=== PATIENT | male | born 1995 | race Caucasian/White ===

== ENCOUNTER 2018-03-20 09:43 | Emergency (ER) | payer SELFPAY ==
[~2018-03-20] VITALS: Ht 177.8 cm; Wt 113.6 kg
[~2018-03-20 09:43] MED LIST: NO HOME MEDICATIONS; PRILOSEC 20MG20 MG PO; ZITHROMAX Z PA250 MG PO
[2018-03-20 10:02] VITALS: PULSE 86; TEMP 98
[2018-03-20 10:19] VITALS: BP 144/98
[2018-03-20] MEDS ORDERED: AMOXICILLIN 50500 MG PO (10:19)
[2018-03-20] MEDS ORDERED: NORCO 325 MG-51 TAB PO (10:19)
== END 2018-03-20 10:31 | disposition home or self-care (01) ==
LOC: COL.ER 09:43
DX: K08.539 Fractured dental restorative material, unspecified (principal)

== ENCOUNTER 2023-12-28 14:36 | Observation (INO) | payer SELFPAY ==
[~2023-12-28] VITALS: Ht 177.8 cm; Wt 131.0 kg
[~2023-12-28 14:36] MED LIST changes: +AMOXICILLIN 50500 MG PO; +NORCO 325 MG-51 TAB PO
[2023-12-28] MEDS ORDERED: LR 1,000 ML IV ONE (15:00)
[2023-12-28 15:04] LABS: BASO % 0.3 % (0.0-2.0); EOS # 0.1 K/mm3 (0.0-0.7); EOS % 0.4 % (0.0-4.0); GRAN # 11.6 K/mm3 (1.4-6.5); GRAN % 81.6 % (42.2-75.2); HEMATOCRIT 44.9 % (42.0-52.0); HEMOGLOBIN 16.4 g/dl (13.5-18.0); LYMPH # 1.4 K/mm3 (1.2-3.4); LYMPH % 9.9 % (20.0-51.0); MEAN CELL VOLUME 80 fl (80.0-100.0); MEAN CORPUSCULAR HEMOGLOBIN 29 pg (27-31); MEAN CORPUSCULAR HGB CONC 37 g/dl (33.0-37.0); MEAN PLATELET VOLUME 8.8 fl (7.4-10.4); MONO # 1.1 K/mm3 (0.1-0.6); MONO % 7.5 % (1.7-9.3); PLATELET COUNT 303 K/mm3 (130-400); RED BLOOD COUNT 5.63 M/mm3 (4.20-5.60); REDCELL DISTRIBUTION WIDTH-CV 11.5 % (11.5-14.5)
[2023-12-28 15:26] LABS: ALBUMIN 4.4 gm/dL (3.5-5.0); BILIRUBIN,TOTAL 1.2 mg/dL (0.2-1.2); CALCIUM 9.7 mg/dL (8.4-10.2); CREATININE, serum 1.35 mg/dL (0.72-1.25); POTASSIUM 3.6 mmol/L (3.5-4.5); TOTAL PROTEIN 8.4 gm/dL (6.2-8.1)
[2023-12-28] MEDS ORDERED: Acetaminophen 325 MG TAB PO ONE (16:00)
[2023-12-28] MEDS ORDERED: NS 100 ML IV SCH (16:07)
[2023-12-28] MEDS ORDERED: Iohexol 300 - 100 ML VIAL IV ONE (16:07)
[2023-12-28 16:26] LABS: COLLECTION METHOD CLEAN CATCH
[2023-12-28 16:41] LABS: URINE APPEARANCE Clear (CLEAR/HAZY); URINE BLOOD TRACE-INTACT (NEGATIVE); URINE COLOR Amber (YELLOW); URINE GLUCOSE Negative (NEGATIVE); URINE KETONE 4+ (NEGATIVE); URINE NITRATE Negative (NEGATIVE); URINE PROTEIN(semi-quant) Negative (NEGATIVE); URINE RBC 0-2 /hpf (0-2)
[2023-12-28 16:42] LABS: SQUAMOUS EPITHELIAL None Seen /hpf (0-10)
[2023-12-28] MEDS ORDERED: NS 1,000 ML IV ONE (16:45)
[2023-12-28] MEDS ORDERED: Cod Liver Oil/Zinc Oxide 40% Ointment 57 GM TUBE TP PRN (17:00)
[2023-12-28] MEDS ORDERED: Polyethylene Glycol 3350 17 GM PDS PO PRN (17:00)
[2023-12-28] MEDS ORDERED: Acetaminophen 500 MG TAB PO PRN (17:00)
[2023-12-28] MEDS ORDERED: Fluconazole 100 MG TAB PO SCH (17:00)
[2023-12-28] MEDS ORDERED: Docusate Sodium 100 MG CAP PO PRN (17:00)
[2023-12-28] MEDS ORDERED: NS 1,000 ML IV SCH (17:30)
[2023-12-28 17:38] VITALS: BP 147/86; PULSE 97; TEMP 99.4
--- NOTE | 2023-12-28 17:40 | NUR ---
PATIENT ARRIVED TO UNIT IN STABLE CONDITION. NO NEEDS OR COMPLAINTS AT THIS TIME. PATIENT ORIENTED TO ROOM. CALL LIGHT WITHIN REACH. VSS. IVF INFUSING PER ORDER.
[2023-12-28 17:57] VITALS: BP_SYST 147
[2023-12-28 19:21] VITALS: BP 152/87; PULSE 94; TEMP 99.1
[2023-12-28 19:55] VITALS: BP_SYST 152
[2023-12-28] MEDS ORDERED: Miconazole 2% Topical Powder BOTTLE TP SCH (21:00)
[2023-12-28] MEDS ORDERED: Famotidine 20 MG TAB PO SCH (21:00)
[2023-12-28] MEDS ORDERED: Nystatin Powder **** subs to Miconazole Powder TOP SCH (21:00)
[2023-12-28 23:06] VITALS: BP 128/86; PULSE 91; TEMP 99.1
[2023-12-29] VITALS (12 sets, daily range): BP systolic 128–160; BP diastolic 80–92; PULSE 84–90; TEMP 98.1–99.1
[2023-12-29] MEDS ORDERED: Heparin 5,000 UNITS/ML 1 ML VIAL SQ SCH
[2023-12-29 06:35] LABS: BASO % 0.4 % (0.0-2.0); EOS % 0.2 % (0.0-4.0); GRAN # 7.9 K/mm3 (1.4-6.5); GRAN % 73.1 % (42.2-75.2); LYMPH # 1.6 K/mm3 (1.2-3.4); LYMPH % 15.1 % (20.0-51.0); MEAN CELL VOLUME 79 fl (80.0-100.0); MEAN CORPUSCULAR HEMOGLOBIN 29 pg (27-31); MEAN CORPUSCULAR HGB CONC 37 g/dl (33.0-37.0); MEAN PLATELET VOLUME 8.9 fl (7.4-10.4); MONO # 1.2 K/mm3 (0.1-0.6); MONO % 10.9 % (1.7-9.3); PLATELET COUNT 235 K/mm3 (130-400); RED BLOOD COUNT 4.94 M/mm3 (4.20-5.60); REDCELL DISTRIBUTION WIDTH-CV 11.7 % (11.5-14.5)
--- NOTE | 2023-12-29 06:45 | NUR ---
PATIENT AWAKE AND ALERT, SITTING UP IN BED. NO NEEDS OR COMPLAINTS AT THIS TIME. CALL LIGHT WITHIN REACH.
[2023-12-29 06:47] LABS: HEMATOCRIT 39.2 % (42.0-52.0); HEMOGLOBIN 14.3 g/dl (13.5-18.0)
[2023-12-29 07:00] LABS: CREATININE, serum 1.21 mg/dL (0.72-1.25); POTASSIUM 3.5 mmol/L (3.5-4.5)
[2023-12-29] MEDS ORDERED: Doxycycline Monohydrate 100 MG CAP PO SCH (10:15)
--- NOTE | 2023-12-29 12:30 | NUR ---
D: Initial visit: Styrene Dehydration Reactor Operator stopped by room on rounds. Pt was resting and content. A: Pt has no needs right now. [place] is from around [place] and [place]. P: Styrene Dehydration Reactor Operator informed pt that if he needed anything to let his nurse know. Styrene Dehydration Reactor Operator will follow up as needed.
--- NOTE | 2023-12-29 15:59 | NUR ---
Liability Claims Adjuster met with patient to discuss discharge planning. Patient lives in [place] with his , Stevo (ph#[phone]) and does not have a current PCP, although he advised he used to go to [facility]. Patient gets medications at [facility] and does not use any DME. 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 Patient believes he has [employer]BS through his employer but could not locate his card. SW sent an email to Case Management and Admissions. Patient does not have DPOA-HC and was not interested in completing one at this time. Discharge Plan: Home
--- NOTE | 2023-12-29 19:00 | NUR ---
PT SITTING IN BED WATCHING TV. PT IS RA AND NON TELE. PT IS AX[employer]. PT HAS CALL LIGHT AND INSTRUCTED TO CALL WITH ALL NEEDS.
[2023-12-30 00:30] VITALS: BP_SYST 135
[2023-12-30 03:18] VITALS: BP 141/84; PULSE 66; TEMP 98.3
[2023-12-30 05:20] VITALS: BP_SYST 141
[2023-12-30 06:34] LABS: BASO % 0.6 % (0.0-2.0); EOS # 0.1 K/mm3 (0.0-0.7); EOS % 2.2 % (0.0-4.0); HEMATOCRIT 41.7 % (42.0-52.0); HEMOGLOBIN 14.3 g/dl (13.5-18.0); LYMPH # 1.5 K/mm3 (1.2-3.4); LYMPH % 27.3 % (20.0-51.0); MEAN CELL VOLUME 82 fl (80.0-100.0); MEAN CORPUSCULAR HEMOGLOBIN 28 pg (27-31); MEAN CORPUSCULAR HGB CONC 34 g/dl (33.0-37.0); MEAN PLATELET VOLUME 9.2 fl (7.4-10.4); MONO # 0.7 K/mm3 (0.1-0.6); MONO % 12.5 % (1.7-9.3); PLATELET COUNT 243 K/mm3 (130-400); RED BLOOD COUNT 5.07 M/mm3 (4.20-5.60); REDCELL DISTRIBUTION WIDTH-CV 11.9 % (11.5-14.5)
[2023-12-30 06:54] LABS: CALCIUM 8.9 mg/dL (8.4-10.2); CREATININE, serum 1.12 mg/dL (0.72-1.25)
[2023-12-30 08:43] VITALS: BP 140/94; PULSE 77; TEMP 97.9
[2023-12-30 08:52] VITALS: BP_SYST 140
[2023-12-30] MEDS ORDERED: DESENEX TP (09:41)
[2023-12-30] MEDS ORDERED: DESITIN MAXIMUM S40% TP (09:42)
[2023-12-30] MEDS ORDERED: DIFLUCAN 100MG100 MG PO (09:43)
[2023-12-30] MEDS ORDERED: MIRALAX510G PO (09:43)
[2023-12-30] MEDS ORDERED: Fluconazole 100 MG TAB PO ONE (09:45)
[2023-12-30] MEDS ORDERED: MONODOX100 PO (09:46)
[2023-12-30] MEDS ORDERED: FLAGYL500 MG PO (09:47)
--- NOTE | 2023-12-30 10:52 | NUR ---
PATIENT RECEIVED DISCHARGE PAPERWORK, FOLLOW UP APPOINTMENTS, AND NEW MEDICATIONS ADDED. PATIENT UNDERSTANDS. AT BEDSIDE LAC IV DISCONTINUED. PATIENT ESCORTED WITH NURSING STAFF TO FRONT OF BUILDING. NO ISSUES WITH DISCHARGE.
== END 2023-12-30 10:52 | disposition home or self-care (01) ==
LOC: COL.ER 14:36 → MEDICAL 16:55
PROVIDERS: Emergency Medicine; ADMIT Internal Medicine
DX: K61.2 Anorectal abscess (principal); B96.89 Other specified bacterial agents as the cause of diseases classified elsewhere; B95.0 Streptococcus, group A, as the cause of diseases classified elsewhere; N17.9 Acute kidney failure, unspecified; B37.2 Candidiasis of skin and nail
CPT/HCPCS: G0378; J1644; J2543; J7030; J7120; Q0112; Q9967